=== PATIENT | male | born 1950 | race Caucasian/White ===

== ENCOUNTER 2019-10-15 15:00 | Outpatient (RCR) | payer MEDICARE, SELFPAY ==
--- NOTE | 2019-10-08 16:35 | PTOPEVAL ---
INITIAL PHYSICAL THERAPY EVALUATION and PLAN OF CARE Thank you for referring Adi to [facility] Please review, sign, date and return this plan of care MILTON. He will be seen in PT 2x/wk x 4 wks. I agree with and certify that the following plan of care is medically necessary. Referring Physician Date Admitting Provider: Attending Provider: Rafiq Mccarty, Referring Provider: *PT Outpatient Evaluation Start: 10/08/19 15:02 Freq: Status: Active Protocol: Document 10/08/19 15:03 RAYO (Rec: 10/08/19 16:34 RAYO [id number]) Therapy Assessment Status Assessment Status Assessment Status Evaluation Outpatient Past Medical History Neurological History Hx Cerebrovascular Accident (CVA) Yes: 09/27/19 L sided symptoms which resolved Cardiovascular History Hx Coronary Artery Bypass Graft Yes: x4 04/09/10 Hx Hypercholesterolemia Yes Hx Hypertension Yes Respiratory History Hx Respiratory Disorders No Significant History Gastrointestinal History Hx Appendectomy Yes Genitourinary History Hx Genitourinary Disorders No Significant History Musculoskeletal History Hx Back Pain Yes: R buttock Hx Orthopedic Surgery Yes: RTC - bilat L 03/2011 R Endocrine History Hx Endocrine Disorders No Significant History Evaluation Information Problem Diagnosis R hip pain, balance - recent CVA Onset couple months - for R buttock pain Additional Evaluation Detail Sep 27 episode of L leg and arm numbness, weakness - gone after 1 day - + MRI findings for mini stroke Did do cardiac rehab - but since then still riding stationary bike 5 miles/day Subjective Information Noticing increased difficulty Query Text:As Reported By Patient/ with prolonged sitting - worse Family in truck - limited with 15 min ride Keeps wallet in front pocket. When gets up and moves around then goes away. No problem with sleeping - sides and stomach - but back soreness when getting out of bed which goes away. Since CVA - L LE - odd sensation - feels like it is asleep - no loss of strength Diagnostic Tests X-Rays For This Problem
--- NOTE | 2019-10-15 15:30 | PCPTNOTE ---
Adi came in for appointment - stated that there was no change with his R hip pain. 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 Went over to talk to Dr. Mccarty about lack of progress. Adi is to have R hip Xray - but veterinary technician is out - to have it either Thurs or Fri. Discussed to keep doing piriformis stretching and other exercises that feel good for him. Will await outcome of X ray - then plan from there.
--- NOTE | 2019-10-27 16:09 | PCPTNOTE ---
Follow up with Dr. Mccarty on Adi. Xray shows mild to moderate OA of R hip. In meantime, Adi had mild TIA. Undergoing work up. Adi is to see Dr. Arrington in regards to hip. Will put him on hold x several weeks. Await outcome of ortho visit.
--- NOTE | 2019-11-07 08:04 | PCPTNOTE ---
PHYSICAL THERAPY DISCHARGE NOTE Admitting Provider: Attending Provider: Rafiq Mccarty, MD Patient:Matteo Salcedo Date of :1950 Adi has not returned for any further treatments since 10/15/2019. He did have R hip Xray with findings and has been referred to an Orthopaedic MD. He has not returned to PT, therefore he will be discharged from physical therapy at this time. The goals have been partially achieved. Thank you for referring Adi to [facility]. Please review, sign, date and return this discharge summary MILTON. I have been updated about Adi's current status and I agree with discharge from the above service at this time. Referring Physician Date
== END 2019-11-10 09:36 | disposition home or self-care (01) ==
LOC: ANHHIPT 15:00
PROVIDERS: PCP Internal Medicine; Visit Provider Internal Medicine
DX: I69.398 Other sequelae of cerebral infarction (principal); R26.89 Other abnormalities of gait and mobility; M25.551 Pain in right hip
CPT/HCPCS: 97110; 97140; 97161

== ENCOUNTER 2019-12-04 10:06 | Outpatient (CLI) | payer MEDICARE, SELFPAY ==
--- NOTE | ~2019-12-04 | XR_ITS ---
EXAMINATION: XR lg joint inject/asp w image DATE: 12/04/2019 10:58 INDICATION: Right hip arthritis presenting with right hip pain TECHNIQUE: A time-out was performed to verify the patient's name, date of , and procedure to b e performed. The procedure including the risks, benefits, and alternatives was discussed with the pat ient. Risks discussed included bleeding and infection. The patient understood the risks and agreed to proceed. The skin overlying the right hip joint was prepped and draped in usual sterile fashion. A nesthetic was administered with 1% lidocaine subcutaneously. A 22 G needle was advanced under fluoro scopic guidance into the joint. Injection of 0.8 mL of Omnipaque 240 confirmed intra-articular posit ion of the needle. Subsequently, injectate consisting of 3 mm of a 2:1 mixture of 0.5% Marcaine: 80 mg/mL Depo-Medrol for a total dosage of 80 mg Depo-Medrol was instilled. Washout of contrast was seen confirming intra-articular administration. The needle was removed and the entry site was cleaned and dressed. There were no immediate complications. Fluoroscopy exposure time was 0.1 minutes. The tota l number of images was 1. FINDINGS: Real-time fluoroscopy demonstrates the needle in the right hip joint. Patient's pain prior to procedure:0/10. Patient's pain following the procedure: 0/10. Mild right hip osteoarthritis. IMPRESSION: 1. Successful right hip joint injection of local anesthetic and steroid. Reviewed, dictated and finalized at location A. AND MACHINE MAINTAINER
== END 2019-12-04 10:07 | disposition home or self-care (01) ==
PROVIDERS: PCP Internal Medicine; Visit Provider Orthopaedic Surgery
DX: M16.11 Unilateral primary osteoarthritis, right hip (principal)
CPT/HCPCS: 20610; 77002; J1040; Q9966

== ENCOUNTER 2020-09-13 01:54 | Outpatient (CLI) | payer MEDICARE, SELFPAY ==
[2020-09-13 18:35] LABS: SARS-CoV-2 RNA PCR Negative
== END 2020-09-13 01:55 | disposition home or self-care (01) ==
LOC: ANHCOVIDDT 01:54
PROVIDERS: PCP Internal Medicine; Visit Provider Urology
DX: Z01.812 Encounter for preprocedural laboratory examination (principal); Z20.828 Contact with and (suspected) exposure to other viral communicable diseases
CPT/HCPCS: 87635; C9803; U0003

== ENCOUNTER 2020-09-16 00:35 | Day surgery (SDC) | payer MEDICARE, SELFPAY ==
[2020-09-08 14:46] VITALS: BMI 35.6
--- NOTE | 2020-09-16 06:30 | WPDHPUPDATE1 ---
History and Physical Update Update Date/Time: 09/16/20 06:30 History and Physical has been reviewed, including an updated exam of the patient. There are NO changes in the patient's condition. Risks, benefits, and alternatives have been discussed and questions answered. Patient agrees to proceed with procedure.
[2020-09-16] MEDS: LACTATED RINGERS 1,000 ML 30 ML IV CONT (10:08)
[2020-09-16 10:10] VITALS: BP 170/76; PULSE 64; RESP 16; TEMP 36; O2SAT 100
--- NOTE | 2020-09-16 10:34 | WPDANESEPPF ---
Anes - Initial Pre Proc Eval Procedure: Operation Date: 09/16/20 11:30 Proposed Procedures p Urolift - Jac Isaacs MD Date/Time: 09/16/20 10:34 Surgeon: Jac Isaacs MD Pre Op Diagnosis: BPH Patient Data Age: 70 Gender: M Height: 5 ft 6 in Weight: 103.1 kg Last Vital Signs Temp 36.0 C L 09/16/20 10:10 Pulse 64 09/16/20 10:10 Resp 16 09/16/20 10:10 BP 170/76 H 09/16/20 10:10 Pulse Ox 100 09/16/20 10:10 Allergies Allergy/AdvReac Type Severity Reaction Status Date / Time No Known Allergies Allergy Verified 09/16/20 09:33 Home Medications Medication Instructions Recorded Confirmed Type losartan 50 mg tablet 50 mg PO HS 12/01/19 09/16/20 History metoprolol tartrate 50 mg tablet 50 mg PO HS 12/01/19 09/16/20 History rosuvastatin 20 mg tablet 20 mg PO HS 12/01/19 09/16/20 History tamsulosin 0.4 mg capsule 0.4 mg PO BID 12/01/19 09/16/20 History nitroglycerin 0.3 mg sublingual 0.3 mg SUBLINGUAL Q5M PRN 12/02/19 09/08/20 History tablet clopidogrel 75 mg HS 09/08/20 09/16/20 History enoxaparin See Rx Instructions .ROUTE .COMPLEX 09/08/20 09/16/20 History cyclosporine [Restasis] 1 drp OPHTHALMIC (EYE) BID 09/16/20 09/16/20 History Patient hx anesthesia problems: none Family hx anesthesia problems: none PMFSH Past Medical History Medical History (Updated 09/16/20 @ 10:34 by Jeb Juan MD) CAD (coronary artery disease) High blood pressure Obesity IRA (obstructive sleep apnea) Vision loss Surgical History Surgical History (Updated 09/16/20 @ 10:34 by Jeb Juan MD) History of appendectomy History of facial surgery History of shoulder surgery Hx of CABG Hx of heart surgery Social History Social History Smoking status: Never smoker Second hand tobacco smoke exposure: No Alcohol intake: current Drinks per week: 10 Substance use: never Substance use type: does not use Living arrangements: with family Gender identity (if verbalized by the patient): Male Spiritual care concerns: No Anes - Eval Final PreProcedure Day of Procedure 09/16/20 10:34 Patient weight: obese Heart: regular rate and rhythm Lungs: clear to auscultation Airway: Mallampati scale class II Neurological: alert and oriented Last oral intake: >/= 8 hours ASA classification: III Emergent: no Anesthetic plan: proceed Anesthesia type and monitoring: general LMA and standard monitoring Informed Consent: The patient's anesthetic plan and its attendant risks and benefits were discussed with the patient/family/POA. Questions were solicited and answers provided to the satisfaction of the patient/family/POA.
--- NOTE | 2020-09-16 12:29 | SUR.PREOP ---
Discussed delay with patient.
[2020-09-16] MEDS: ceFAZolin 2 GM/D5W 50 ML 2 GM/50 ML BAG IVPB (13:01)
[2020-09-16] MEDS: LIDOCAINE HCL 2% GEL UROJET 10 ML PKG MUCOUS MEM (13:12)
[2020-09-16 13:28] VITALS: BP 160/84; PULSE 67; RESP 16; O2SAT 98
--- NOTE | 2020-09-16 13:36 | P.OP_ITS ---
Procedure Note - Detailed Date of procedure: 09/16/20 Pre-op diagnosis: BPH Post-op diagnosis: same Procedure performed: UroLift Description of procedure: The patient was prepped and draped in a routine fashion after the uneventful induction of a general LMA anesthetic. A 20F cystoscope was inserted into the bladder. The cystoscopy bridge was replaced with a UroLift delivery device. The first treatment site was the patient's right side approximately 1.5cm distal to the bladder neck. The distal tip of the delivery device was then angled laterally approximately 20 degrees at this position to compress the lateral lobe. The trigger was pulled, thereby deploying a needle containing the implant through the prostate. The needle was then retracted, allowing one end of the implant to be delivered to the capsular surface of the prostate. The implant was then tensioned to assure capsular seating and removal of slack monofilament. The device was then angled back toward midline and slowly advanced proximally (typically 3 to 4 mm) until cystoscopic verification of the monofilament being centered in the delivery bay. The urethral end piece was then affixed to the monofilament thereby tailoring the size of the implant. Excess filament was then severed. The delivery device was then re-advanced into the bladder. The delivery device was then replaced with cystoscope and bridge and the implant location and opening effect was conf irmed cystoscopically. The same procedure was then repeated on the left side, and two additional implants were delivered just proximal to the verumontanum, again one on right and one on left side of the prostate, following the same technique. Cystoscopy then revealed a persistent area of obstruction, and two more implants were delivered in the mid-prostate. Therefore, a total of 6 implants were delivered. A final cystoscopy was conducted first to inspect the location and state of each implant and second, to confirm the presence of a continuous anterior channel was present through the prostatic urethra with irrigation flow turned off. Because of bleeding I did opt to leave an indwelling 18F Tejada catheter which I intend to leave overnight. At this point the cystoscope was removed and the patient was taken to the PACU in good condition. Anesthesia: GLMA and MAC Surgeon: Jac Isaacs MD Estimated blood loss (mL): 15 Drains: Yes (16F Tejada) Packing: No Pathology: none sent Complications: No immediate complications Condition: stable Disposition: PACU
[2020-09-16 13:55] VITALS: BP 166/93; PULSE 62; RESP 16; O2SAT 98
--- NOTE | 2020-09-16 14:07 | SUR.PHASEII ---
DR. OLIVARES CAME TO SEE PT. WILL CHECK ON HIS URINE IN ONE HOUR TO DECIDE IF PT NEEDS TO KEEP CASTAÑEDA CATHETER IN AT HOME.
[2020-09-16 14:25] VITALS: BP 176/97; PULSE 59; RESP 16
[2020-09-16] MEDS: oxyCODONE HCL (*CRX) 5 MG TAB IR PO (15:02)
--- NOTE | 2020-09-16 15:35 | SUR.PHASEII ---
DR. OLIVARES ORDERED FOR ME TO REMOVE CASTAÑEDA CATHETER AND INSTRUCTED PT TO DRINK LOTS OF WATER AT HOME.
== END 2020-09-16 15:35 | disposition home or self-care (01) ==
PROVIDERS: PCP Internal Medicine; Visit Provider Urology
PROC: 0T7D8DZ Dilation of Urethra with Intraluminal Device, Via Natural or Artificial Opening Endoscopic (ICD-10-PCS; CPT 52441; principal; 2020-09-16 11:30)
DX: N40.1 Benign prostatic hyperplasia with lower urinary tract symptoms (principal); R35.0 Frequency of micturition; R35.1 Nocturia; R39.15 Urgency of urination; I25.10 Atherosclerotic heart disease of native coronary artery without angina pectoris; I10 Essential (primary) hypertension; G47.33 Obstructive sleep apnea (adult) (pediatric); H54.7 Unspecified visual loss; Z95.1 Presence of aortocoronary bypass graft; E66.9 Obesity, unspecified; Z68.36 Body mass index [BMI] 36.0-36.9, adult
CPT/HCPCS: C9740; A9270; J0690; J2405; J2704; J3010; J7120; L8699

== ENCOUNTER 2021-05-06 15:58 | Emergency (ER) | payer MEDICARE, SELFPAY ==
[2021-05-06] VITALS (9 sets, daily range): BP systolic 140–185; BP diastolic 70–87; PULSE 85–94; RESP 16–31; TEMP 36.7–37.3; O2SAT 96–99
--- NOTE | ~2021-05-06 | CT_ITS ---
EXAMINATION: CT abdomen pelvis w con DATE: 05/06/2021 18:10 INDICATION: Abdominal pain. TECHNIQUE: Computed tomography (CT) of the abdomen and pelvis was performed with 100 mL Omnipaque 350 intravenous contrast. Automated exposure control and iterative reconstruction technique were employe d. The dose-length product was 1255.58 mGy-cm. COMPARISON: None. FINDINGS: The visualized portions of the lung bases demonstrate mild atelectasis. No pleural effusion . The heart size is normal. No pericardial effusion. There is a 6 mm cyst in the liver. The gallbladd er, spleen, pancreas, adrenal glands, and right kidney are normal. There is a 4 mm cyst in left kidne y. There is mild diffuse bladder wall thickening, likely secondary to chronic outlet obstruction from the severely enlarged prostate. There is diverticulosis of the colon without evidence of diverticuli tis. There are no dilated loops of bowel. The appendix is not visualized. There are no pathologically enlarged lymph nodes. There is no free intraperitoneal fluid. There is mild lumbar spondylosis. IMPRESSION: 1. No etiology for the patient's symptoms. Reviewed, dictated and finalized at location A.
[2021-05-06 17:00] LABS: Hematocrit 44.3 % (42.0-52.0); Hemoglobin 15.3 g/dL (14.0-18.0); Mean Corpuscular HGB Conc 34.5 g/dl (32-36); Mean Corpuscular Hemoglobin 30.7 pg (26-34); Mean Corpuscular Volume 88.8 fl (80-100); Mean Platelet Volume 8.9 fl (7.4-10.4); Platelet Count Result 169 k/mm3 (150-375); Red Blood Count 4.99 M/mm3 (4.6-6.20); Red Cell Distribution Width 12.5 % (11.5-14.5); White Blood Count 16.8 K/mm3 (4.5-10.0)
[2021-05-06 17:04] LABS: Add Urine Microscopic? YES; Appearance Urine Clear (Clear); Bilirubin Urine Negative (Negative); Blood Urine 1+ (Negative); Color Urine Yellow (Yellow); Glucose Urine UA Negative (Negative); Ketones Urine Negative (Negative); Leukocyte Esterase Ur 1+ LEU/UL (Negative); Nitrate Urine Negative (Negative); Protein Urine 1+ mg/dL (Negative); Specific Grav Ur 1.013 (1.001-1.035); Squamous Epithelial Cell Urine Rare /hpf (Few); Urobilinogen Urine Negative mg/dL (<2.0); WBC Urine 31-50 /hpf
[2021-05-06 17:11] LABS: Alanine Aminotransferase 23 U/L (4-50); Albumin Level 4.4 g/dL (3.5-5.1); Alkaline Phosphatase 50 U/L (38-126); Anion Gap 11 mmol/L (8-16); Aspartate Amino Transferase 29 U/L (17-59); Bilirubin,Total 1.6 mg/dL (0.2-1.3); Blood Urea Nitrogen 13 mg/dL (9-20); Calcium 8.9 mg/dL (8.4-10.2); Carbon Dioxide 26 mmol/L (22-30); Chloride 94 mmol/L (98-107); Estimated CRCL calculation 64 ml/min; Estimated Glomerular Filt Rate > 60; Glucose 99 mg/dL (65-110); Lipase 61 U/L (23-300); Potassium 3.8 mmol/L (3.4-5.0); Sodium 131 mmol/L (137-145)
[2021-05-06 17:22] LABS: Band Neutrophils Percent 3 % (0-6); Lymphocytes Absolute Manual 0.67 K/mm3 (1.1-4.5); Monocytes Absolute Manual 0.67 K/mm3 (0.1-0.90); Monocytes Percent Manual 4 % (3-9); Neutrophils Absolute Manual 15.45 K/mm3 (1.3-6.7); Neutrophils Percent Manual 89 % (46-73); Total Cells Counted 100
[2021-05-06 17:23] LABS: Platelet Estimate Adequate (Adequate)
--- NOTE | 2021-05-06 17:35 | ED.GENADULT ---
HPI - General Adult General Chief complaint: Abdominal Pain <DO Arturo Cunningham Last Filed: 05/06/21 18:53> Stated complaint: HTN, trouble urinating <DO Arturo Cunningham Last Filed: 05/06/21 18:53> Time Seen by Provider: 05/06/21 17:29 <Brad Jaimes DO - Last Filed: 05/06/21 18:53> Source: RN notes reviewed <DO Arturo Cunningham Last Filed: 05/06/21 18:53> History of Present Illness HPI narrative: Patient presents emergency department from home for dysuria. Patient states over the past 2 days has been having difficulty starting his urine stream and when he does he is not able to fully empty he states he has had no abdominal pain but states that he did note some mild nausea states he has a history of BPH and had a procedure done by Dr. Ferny dela cruz prostate and is now on Flomax denies any fevers or chills, chest pain shortness of breath or any other symptoms he states he did check his blood pressure today notes it was mildly elevated as well and came to the emergency room for further evaluation <DO Arturo Cunningham Last Filed: 05/06/21 18:53> Related Data Home medications: Home Medications Medication Instructions Recorded Confirmed clopidogrel 05/06/21 05/06/21 losartan 05/06/21 metoprolol succinate PO 05/06/21 nitroglycerin mg 05/06/21 rosuvastatin mg 05/06/21 sildenafil (pulm.hypertension) 05/06/21 tamsulosin mg PO 05/06/21 <DO Arturo Cunningham Last Filed: 05/06/21 18:53> Allergies/adverse reactions: Allergies Allergy/AdvReac Type Severity Reaction Status Date / Time No Known Allergies Allergy Verified 05/06/21 18:41 <DO Arturo Cunningham Last Filed: 05/06/21 18:53> Review of Systems Review of Systems: Gen.: Denies fevers or chills ENT: Denies congestion Respiratory: Denies shortness of breath or cough CV: Denies chest pain or palpitations GI: Denies abdominal pain emesis or diarrhea reports nausea see HPI Musculoskeletal: Denies back pain or muscle pain Neuro: Denies numbness, tingling, weakness or focal weakness Skin: Denies rash Except as documented, all other systems reviewed and negative <Brad Jaimes DO - Last Filed: 05/06/21 18:53> [facility] Past Medical History Medical History: Medical History CAD (coronary artery disease) High blood pressure Obesity IRA (obstructive sleep apnea) Vision loss <Brad Jaimes DO - Last Filed: 05/06/21 18:53> Surgical History Surgical History: Surgical History (Updated 09/16/20 @ 10:34 by Jeb Juan MD) History of appendectomy History of facial surgery History of shoulder surgery Hx of CABG Hx of heart surgery <Brad Jaimes DO - Last Filed: 05/06/21 18:53> Social History Social History: Social History Smoking status: Never smoker Second hand tobacco smoke exposure: No Alcohol intake: current Drinks per week: 10 Substance use: never Substance use type: does not use Gender identity (if verbalized by the patient): Male Spiritual care concerns: No <DO Arturo Cunningham Last Filed: 05/06/21 18:53> Exam Narrative: APPEARANCE: No acute distress, nontoxic, resting in bed EYES: EOMI HEENT: Normocephalic, atraumatic, OMM RESPIRATORY: No respiratory distress Clear to auscultation bilaterally with no rhonchi wheezing or rales. CARDIOVASCULAR: Regular rate and rhythm without murmurs rubs or gallops. ABDOMINAL: Soft, nontender, nondistended, no rebound or guarding MUSCULOSKELETAl: Moves all extremities. No clubbing, cyanosis or edema. NEURO: Awake and alert. Following commands, speech normal, no focal deficits SKIN:: Warm, dry. No rashes lesions or abrasions PSYCHIATRIC: Normal affect/mood, <Brad Jaimes DO - Last Filed: 05/06/21 18:53> Course Course Emergency Course: Called discussed with Dr. Marie
[2021-05-06] MEDS: SODIUM CHLORIDE 0.9% IV 1,000 ML 999 ML IV CONT (18:21)
[2021-05-06 19:06] LABS: Lactic Acid Reflex 1.1 mmol/L (0.7-2.1)
[2021-05-06] MEDS: CIPROFLOXACIN 500 MG TAB PO (19:25)
== END 2021-05-06 20:19 | disposition home or self-care (01) ==
PROVIDERS: Emergency Provider Emergency Medicine; PCP Internal Medicine
DX: N41.0 Acute prostatitis (principal); I25.10 Atherosclerotic heart disease of native coronary artery without angina pectoris; G47.33 Obstructive sleep apnea (adult) (pediatric); E66.9 Obesity, unspecified; Z68.37 Body mass index [BMI] 37.0-37.9, adult; Z95.1 Presence of aortocoronary bypass graft
CPT/HCPCS: 36415; 74177; 80053; 81001; 83605; 83690; 85025; 87040; 87077; 87086; 87186; 96360; 99284; A9270; J7030; Q9967

== ENCOUNTER 2021-07-16 10:54 | Emergency (ER) | payer MEDICARE, SELFPAY ==
[2021-07-16 11:14] VITALS: BP 165/92; PULSE 73; RESP 17; TEMP 36.6; O2SAT 99
[2021-07-16 12:00] LABS: Add Urine Microscopic? YES; Appearance Urine Clear (Clear); Bilirubin Urine Negative (Negative); Blood Urine 1+ (Negative); Color Urine Straw (Yellow); Glucose Urine UA Negative (Negative); Ketones Urine Negative (Negative); Leukocyte Esterase Ur Negative LEU/UL (Negative); Nitrate Urine Negative (Negative); Protein Urine Negative (Negative); RBC Urine 0-2 /hpf (0-2); Specific Grav Ur 1.008 (1.001-1.035); Urobilinogen Urine Negative mg/dL (<2.0); WBC Urine 0-3 /hpf
[2021-07-16 13:28] LABS: Basophils Percent Auto 0.3 % (0.2-1.2); Eosinophils Absolute Auto 0.1 K/mm3 (0-0.3); Eosinophils Percent Auto 1.7 % (0-4.4); Hematocrit 45.3 % (42.0-52.0); Hemoglobin 15.9 g/dL (14.0-18.0); Immature Granulocyte Absolute 0.03 K/mm3 (0.00-0.031); Immature Granulocyte Percent A 0.4 % (0-0.5); Lymphocytes Absolute Auto 0.81 K/mm3 (0.9-3.2); Lymphocytes Percent Auto 10.7 % (18.3-44.2); Mean Corpuscular HGB Conc 35.1 g/dl (32-36); Mean Corpuscular Hemoglobin 31.5 pg (26-34); Mean Corpuscular Volume 89.9 fl (80-100); Mean Platelet Volume 8.5 fl (7.4-10.4); Monocytes Absolute Auto 0.6 K/mm3 (0.1-0.6); Monocytes Percent Auto 7.8 % (2.6-8.5); Neutrophils Percent Auto 79.1 % (45.5-73.1); Platelet Count Result 187 k/mm3 (150-375); Red Blood Count 5.04 M/mm3 (4.6-6.20); Red Cell Distribution Width 12.1 % (11.5-14.5); White Blood Count 7.6 K/mm3 (4.5-10.0)
[2021-07-16 13:41] LABS: Alanine Aminotransferase 18 U/L (4-50); Albumin Level 4.9 g/dL (3.5-5.1); Alkaline Phosphatase 56 U/L (38-126); Anion Gap 11 mmol/L (8-16); Aspartate Amino Transferase 22 U/L (17-59); Bilirubin,Total 1.1 mg/dL (0.2-1.3); Blood Urea Nitrogen 9 mg/dL (9-20); Calcium 9.4 mg/dL (8.4-10.2); Carbon Dioxide 26 mmol/L (22-30); Chloride 99 mmol/L (98-107); Estimated CRCL calculation 69 ml/min; Estimated Glomerular Filt Rate > 60; Glucose 108 mg/dL (65-110); Potassium 4.8 mmol/L (3.4-5.0); Sodium 136 mmol/L (137-145)
--- NOTE | 2021-07-16 13:44 | ED.MALEGU ---
HPI - Male Genitourinary General Chief complaint: Urogenital-Male Stated complaint: difficulty with urination Time Seen by Provider: 07/16/21 11:12 Source: patient History of Present Illness HPI Narrative: Patient presents with dysuria and previous urgency. Patient works he had similar symptoms couple months ago was diagnosed with a UTI and feels like he is having a another UTI. Patient reports history of BPH. Patient denies any abdominal pain back pain fevers, nausea, vomiting. His symptoms started this morning and have begun to improve on arrival to the ER. He denies any hematuria Related Data Home Medications Medication Instructions Recorded Confirmed clopidogrel 05/06/21 05/06/21 losartan 05/06/21 metoprolol succinate PO 05/06/21 nitroglycerin mg 05/06/21 rosuvastatin mg 05/06/21 sildenafil (pulm.hypertension) 05/06/21 tamsulosin mg PO 05/06/21 Allergies Allergy/AdvReac Type Severity Reaction Status Date / Time No Known Allergies Allergy Verified 07/16/21 11:53 Review of Systems Review of Systems: CONSTITUTIONAL: Denies fever, chills, or sweats. EYES: Denies visual changes, redness, or discharge. ENT: Denies rhinorrhea, congestion, sore throat, or otalgia. CARDIOVASCULAR: Denies chest pain, palpitations, or edema. RESPIRATORY: Denies cough or dyspnea. GASTROINTESTINAL: Denies abdominal pain, nausea, vomiting, or diarrhea. GENITOURINARY: Reports dysuria and increased urinary urgency as well as frequency SKIN: Denies rash or itching. MUSCULOSKELETAL: Denies back pain, joint pain, or myalgia. NEUROLOGIC: Denies headache, numbness, dizziness, or weakness. PSYCHIATRIC: Denies anxiety or depression. All systems reviewed & are unremarkable except as noted in HPI and below PMFSH Past Medical History Medical History CAD (coronary artery disease) High blood pressure Obesity IRA (obstructive sleep apnea) Vision loss Surgical History Surgical History History of appendectomy History of facial surgery History of shoulder surgery Hx of CABG Hx of heart surgery Social History Social History Smoking status: Never smoker Second hand tobacco smoke exposure: No Alcohol intake: current Drinks per week: 10 Substance use: never Substance use type: does not use Gender identity (if verbalized by the patient): Male Spiritual care concerns: No Exam Narrative: GENERAL: Well-appearing, well-nourished, and in no acute distress. HEAD: Normocephalic, atraumatic. EYES: PERRLA and EOMI. ENT: Nares clear, no rhinorrhea or epistaxis. Mucous membranes moist. NECK: Supple. No masses. No JVD ABDOMEN: Soft, nontender, nondistended. BACK: No CVA tenderness no midline back pain EXTREMITIES: Normal range of motion. No edema. SKIN: Warm, dry, no rash. NEURO: No focal deficits. Alert and oriented x3. PSYCH: Normal mood and affect. Course Reevaluation(s) Reevaluation #1: Patient resting comfortably feeling improved Date: 07/16/21 Time: 13:45 Reevaluation #2: Patient continues to be resting comfortably results plan reviewed with patient. Patient comfortable with outpatient plan. Date: 07/16/21 Time: 14:22 Vital Signs Vital signs: Vital Signs Temperature 36.6 C 07/16/21 11:14 Pulse Rate 73 07/16/21 11:14 Respiratory Rate 17 07/16/21 11:14 Blood Pressure 165/92 H 07/16/21 11:14 Pulse Oximetry 99 07/16/21 11:14 Temperature 36.6 C 07/16/21 11:14 Pulse Rate 70 07/16/21 14:30 Respiratory Rate 16 07/16/21 14:30 Blood Pressure 148/86 H 07/16/21 14:30 Pulse Oximetry 99 07/16/21 14:30 MDM - Male Genitourinary MDM Narrative Medical decision making narrative: H&P as above, vss, pt looks clinically well, exam reassuring, labs reassuring, img PVR of 50, additional labs/img considered, symptomatic relief availab
[2021-07-16 14:30] VITALS: BP 148/86; PULSE 70; RESP 16; O2SAT 99
== END 2021-07-16 14:30 | disposition home or self-care (01) ==
PROVIDERS: Emergency Provider Emergency Medicine; PCP Internal Medicine
DX: N40.1 Benign prostatic hyperplasia with lower urinary tract symptoms (principal); R39.15 Urgency of urination; R31.1 Benign essential microscopic hematuria; I25.10 Atherosclerotic heart disease of native coronary artery without angina pectoris; E66.9 Obesity, unspecified; Z68.36 Body mass index [BMI] 36.0-36.9, adult; G47.33 Obstructive sleep apnea (adult) (pediatric); Z95.1 Presence of aortocoronary bypass graft
CPT/HCPCS: 36415; 80053; 81001; 85025; 99283

== ENCOUNTER 2021-08-31 10:00 | Outpatient (CLI) | payer MEDICARE, SELFPAY ==
--- NOTE | 2021-08-31 10:03 | ECG_ITS ---
Measurements Intervals [place] Rate: 58 P: 15 OH: 284 QRS: -11 QRSD: 117 T: 16 QT: 401 QTc: 396 Interpretive Statements SINUS BRADYCARDIA WITH FIRST DEGREE AV BLOCK INCOMPLETE RIGHT BUNDLE BRANCH BLOCK DELAYED PRECORDIAL R/S TRANSITION CONSIDER INFERIOR INFARCT, AGE INDETERMINATE ABNORMAL ECG Electronically Signed On 08-31-2021 11:19:24 [employer]ER by Rashard Sawant D.O.
== END 2021-08-31 10:01 | disposition home or self-care (01) ==
LOC: ANHSURGERY 10:03
PROVIDERS: PCP Internal Medicine; Visit Provider Urology
DX: I10 Essential (primary) hypertension (principal); Z01.818 Encounter for other preprocedural examination; I45.10 Unspecified right bundle-branch block; I44.0 Atrioventricular block, first degree
CPT/HCPCS: 93005

== ENCOUNTER 2021-09-08 00:09 | Day surgery (SDC) | payer MEDICARE, SELFPAY ==
[2021-08-29 10:11] VITALS: BMI 36.3
--- NOTE | 2021-08-29 10:25 | PC.NURSE ---
Addendum entered by Kimberly Fuchs RN 08/29/21 10:41: ARRIVE 0930, OR TIME-1130 Original Note: Report to the Outpatient Waiting Room, entrance under the green pavilion located off [facility], at time __9:30AM on date __09/08/21 . OR Time: __9:30AM . - You and your visitor will be asked a series of questions to screen for COVID 19 for your protection. - A mask is required within the hospital. - Only one visitor is allowed at this time. Patient visitors will be guided where to wait when not with patient. Preoperative COVID Testing Requirements: No COVID Test needed if: (proof is required; if not received patient will have Rapid Test prior to entry) - Patient has received COVID Vaccine at least 14 days prior to procedure date or - Patient has positive COVID test result within last 90 days of surgery date. COVID Test needed if above criteria is not met If not COVID vaccinated a COVID test must be conducted within 72 hours of surgery and patient is asked to isolate self from time of testing until procedure. You will go to the [facility] for your COVID testing. The [facility] site is located at the corner of [address] [facility]. You will only be called if COVID results are positive and your surgeon may reschedule your elective surgery date. Patients may have clear liquids (water, carbonated beverages, clear teas, apple juice) until 3 hours prior to surgery with a maximum of 20 ounces. - No food from midnight until time of surgery - Infants may have breast milk until 4 hours before surgery, formula 6 hours prior to surgery. - Children will be allowed to drink immediately following surgery. If applicable, please bring a bottle or sippy cup to assist with drinking. Juice, water, soda, and popsicles are readily available. For infants on formula, please bring formula the day of surgery. Pacifiers are allowed. Take the following medications with a SIP of water the morning of surgery: ____NONE Medications to discontinue per physician PLAVIX PER DR OLIVARES Date to take last dose Please no make-up, nail ivorian, hairspray, perfume, deodorant, or body powder the day of surgery. No jewelry (including any body piercings) or valuables the day of surgery, leave them at home. Please take a shower or bath the night before, or the morning of, surgery with an antibacterial soap. Wear comfortable, loose fitting clothing. Children are encouraged to wear pajamas. - Jewelry must be removed prior to entering the operating room. Rings and piercings that are not removed may be cut off. - The hospital will not accept responsibility for valuables. - Please leave all valuables, including medications, at home the day of surgery. If you are going home after surgery, a licensed [employer] company flatbed driver must drive you home. - NO public transportation without another adult. - We recommend that an adult stay with you for 24 hours following discharge. - We also recommend that you do not drive, make important decision, drink alcoholic beverages, or take any drugs that were not prescribed by your health care provider for at least 24 hours after your discharge time. For Pediatric surgeries, we recommend two adults accompany the child home (only one inside the building at this time). Follow any additional instructions given to you from your surgeon. Telephone instructions given to __PATIENT and asked if any additional questions and then verbalized understanding. Patient advised to call surgeon office or pre surgery nurse liaison [phone] if any additional questions.
--- NOTE | 2021-08-31 10:51 | PM.IMHP ---
H&P: HPI History of Present Illness Date/Time: 08/31/21 10:51 71-year-old with longstanding bladder outlet obstructive voiding symptoms and eventually the urinary retention. He has had little success with the attempted management via Urolift placed in August 2020. He has gone on to develop urinary retention. After discussion of therapeutic options he has elected for a TURP. He does have a slightly elevated PSA at 4.1 to we have opted to forego formal transrectal ultrasound and biopsy because of his longstanding need for anticoagulation. He is aware of the risks he may have underlying prostate cancer may be undiagnosed. He is aware of the risk of TURP including postoperative bleeding, persistent voiding symptoms, urinary incontinence. Chief Complaint: Difficulty voiding and urinary retention Review of Systems Cardiovascular: Cardiovascular: Denies chest pain, Denies lightheadedness, Denies palpitations and Denies dyspnea Respiratory: Respiratory: Denies dyspnea Gastrointestinal: Gastrointestinal: Denies diarrhea, Denies nausea and Denies vomiting Genitourinary: Genitourinary: Denies hematuria and Denies dysuria Endocrine: Endocrine: Denies palpitations [facility] Past Medical History Medical History CAD (coronary artery disease) High blood pressure Obesity IRA (obstructive sleep apnea) Vision loss Surgical History Surgical History History of appendectomy History of facial surgery History of shoulder surgery Hx of CABG Hx of heart surgery Social History Social History Smoking status: Never smoker Second hand tobacco smoke exposure: No Alcohol intake: current Drinks per week: 12 Substance use: never Substance use type: does not use Additional living arrangements comments: Gender identity (if verbalized by the patient): Male Spiritual care concerns: No Meds Home Medications and Allergies Home Medications Medication Instructions Recorded Confirmed Type clopidogrel 75 mg PO HS 05/06/21 08/29/21 History losartan 50 mg PO HS 05/06/21 08/29/21 History metoprolol succinate 50 mg PO HS 05/06/21 08/29/21 History nitroglycerin 0.4 mg SUBLINGUAL Q2-3M PRN 05/06/21 08/29/21 History rosuvastatin 20 mg PO HS 05/06/21 08/29/21 History sildenafil (pulm.hypertension) 20 mg PO ONCE PRN 05/06/21 08/29/21 History tamsulosin 0.4 mg PO BID 05/06/21 08/29/21 History amlodipine 5 mg PO HS 08/29/21 08/29/21 History Allergies Allergy/AdvReac Type Severity Reaction Status Date / Time No Known Allergies Allergy Verified 08/29/21 10:09 Exam Const: General: no acute distress Resp: Effort & Inspection: normal respiratory effort GI: Inspection: non-distended GI Palp: No abdominal tenderness and No Guarding due to palpation present (GI) Auscultation: normal bowel sounds Assessment and Plan Assessment and plan (1) Urinary retention due to benign prostatic hyperplasia: Code(s): N40.1 - Benign prostatic hyperplasia with lower urinary tract symptoms; R33.8 - Other retention of urine Status: Acute Assessment and Plan: TURP
[2021-09-08] VITALS (17 sets, daily range): BP systolic 111–171; BP diastolic 57–83; PULSE 56–75; RESP 7–24; TEMP 36.2–37; O2SAT 92–100; BMI 35.7
--- NOTE | 2021-09-08 06:48 | WPDHPUPDATE1 ---
History and Physical Update Update Date/Time: 09/08/21 06:48 History and Physical has been reviewed, including an updated exam of the patient. There are NO changes in the patient's condition. Risks, benefits, and alternatives have been discussed and questions answered. Patient agrees to proceed with procedure.
--- NOTE | 2021-09-08 08:43 | P.PNAN_ITS ---
Anes - Initial Pre Proc Eval Procedure: Operation Date: 09/08/21 11:30 Proposed Procedures p Trans Urethral Resection Prostate - Jac Isaacs MD Date/Time: 09/08/21 08:43 Surgeon: Jac Isaacs MD Pre Op Diagnosis: bph Patient Data Age: 71 Gender: M Height: 1.68 m Weight: 102 kg Allergies Allergy/AdvReac Type Severity Reaction Status Date / Time No Known Allergies Allergy Verified 09/08/21 09:36 Home Medications Medication Instructions Recorded Confirmed Type clopidogrel 75 mg PO HS 05/06/21 09/08/21 History losartan 50 mg PO HS 05/06/21 09/08/21 History metoprolol succinate 50 mg PO HS 05/06/21 09/08/21 History nitroglycerin 0.4 mg SUBLINGUAL Q2-3M PRN 05/06/21 08/29/21 History rosuvastatin 20 mg PO HS 05/06/21 09/08/21 History sildenafil (pulm.hypertension) 20 mg PO ONCE PRN 05/06/21 08/29/21 History tamsulosin 0.4 mg PO BID 05/06/21 09/08/21 History amlodipine 5 mg PO HS 08/29/21 09/08/21 History Patient hx anesthesia problems: none Family hx anesthesia problems: none Results Review: All pre-operative results and documents have been reviewed as part of the pre-operative evaluation. ON LICENSE OF [facility] Past Medical History Medical History (Updated 09/08/21 @ 08:44 by Raghav Duenas DO) CAD (coronary artery disease) CVA (cerebral vascular accident) High blood pressure Obesity IRA (obstructive sleep apnea) TIA (transient ischemic attack) Vision loss Surgical History Surgical History (Updated 09/08/21 @ 08:44 by Raghav Duenas DO) History of appendectomy History of facial surgery History of shoulder surgery Hx of CABG x4 vessel, 2019 Hx of heart surgery Social History Social History Smoking status: Never smoker Second hand tobacco smoke exposure: No Alcohol intake: current Drinks per week: 12 Substance use: never Substance use type: does not use Living arrangements: with family Additional living arrangements comments: Gender identity (if verbalized by the patient): Male Spiritual care concerns: No Anes - Eval Final PreProcedure Day of Procedure 09/08/21 08:43 Patient weight: obese Heart: regular rate and rhythm Lungs: clear to auscultation and normal air movement Airway: Mallampati scale class III Neurological: alert and oriented Last oral intake: >/= 8 hours ASA classification: III Emergent: no Anesthetic plan: proceed Anesthesia type and monitoring: general LMA and standard monitoring Results Review: All pre-operative results and documents have been reviewed as part of the pre-operative evaluation. Informed Consent: The patient's anesthetic plan and its attendant risks and benefits were discussed with the patient/family/POA. Questions were solicited and answers provided to the satisfaction of the patient/family/POA.
[2021-09-08] MEDS: LACTATED RINGERS 1,000 ML 30 ML IV CONT ×2 (10:15→13:36)
--- NOTE | 2021-09-08 10:56 | SUR.PREOP ---
1045; DR BARAHONA NOTIFIED THAT PT STOPPED HIS PLAVIX 7 DAYS AGO, BUT DID NOT START LOVENOX. STATES NO ONE TOLD ME THAT
--- NOTE | 2021-09-08 11:00 | SUR.PREOP ---
Addendum entered by Gabrielle Castañeda RN 09/08/21 11:10: Dr. Alcala correction Original Note: KAELA guan md at bedside and was informed
--- NOTE | 2021-09-08 11:21 | SUR.PREOP ---
career coach for dr romero called out to inform that there is a delay for start time for this pt. This nurse informed her per rn eladio pt did not take his lovenox as ordered she will look into it and get back to me.
--- NOTE | 2021-09-08 11:28 | SUR.PREOP ---
per database reporting consultant dilcia camp pt case is delayed till 1230 due to a previous case. pt and visitor was informed
--- NOTE | 2021-09-08 11:56 | SUR.PREOP ---
1140; DR OLIVARES NOTIFIED OF PT NOT TAKING LOVENOX AFTER STOPPING PLAVIX FOR 1 WEEK,
[2021-09-08] MEDS: ceFAZolin 2 GM/D5W 50 ML 2 GM/50 ML BAG IVPB (12:27)
--- NOTE | 2021-09-08 13:32 | SUR.OPER ---
LIDOCAINE UROJET ON FIELD NOT GIVEN PER DR OLIVARES.
--- NOTE | 2021-09-08 13:38 | W.PM.PROC2 ---
Procedure Note - Detailed Date of Procedure 09/08/21 Pre-op Diagnosis bph Post-op Diagnosis same Procedure Performed TURP Surgeon Jac Isaacs MD Electronic Funds Transfer Coordinator None Anesthesia general Description of Procedure The patient was brought to the operative suite where he is prepped and draped in routine sterile fashion while in the dorsal lithotomy position after the uneventful induction of a general LMA anesthetic. A 27 Hungarian resectoscope sheath was placed into his bladder. He had no urethral strictures. The patient had bilobar hyperplasia with no median lobe. The bladder itself was endoscopically normal, showing no mucosal hyperemia, intravesical neoplasm or foreign bodies. There was a single, orthotopic ureteral orifice bilaterally. These orifices were identified and preserved throughout the remainder of the procedure. The left lateral lobe was resected starting at the 6 o'clock position, working counter clockwise to the 12 o'clock position. Again, resection was carried out from the bladder neck to the verumontanum until the capsular fibers of the prostate were identified. The right lateral lobe was resected in a similar fashion starting at the 6 o'clock position working clockwise to the 12 o'clock position and carried out until the capsular fibers of the prostate were identified. Apical tissue was then circumferentially resected. All chips were evacuated from the bladder using an [email or web address] evacuator. Hemostasis was obtained with electric cautery. The ureteral orifices were again inspected and found to be without injury. Estimated blood loss throughout this procedure was 75cc. The patient was taken to recovery room having tolerated this well. Estimated Blood Loss 75 Drains Yes Packing No Pathology yes Complications No immediate complications Condition stable Disposition PACU
--- NOTE | 2021-09-08 14:45 | SUR.PHASEI ---
9926- Call to floor RN to give report. Per RN she is unavailable at this time and will call back when able to receive report on patient.
[2021-09-08] MEDS: MORPHINE SULFATE (*CRX) 2 MG/ML INJ IV PUSH (15:25)
[2021-09-08] MEDS: DOCUSATE SODIUM 100 MG CAPSULE PO (16:57)
[2021-09-08] MEDS: HYDROcodone/acetaminophen (*CRX) 5-325 MG TABLET 1 TAB PO (18:51)
[2021-09-08] MEDS: HYOSCYAMINE SULFATE 0.125 MG TABLET SUBLINGUAL (18:52)
--- NOTE | 2021-09-08 18:58 | PC.NURSE ---
per Dr. Gloria's telephone order, capnography started on pt at 1700. Pt stated while initiating it that he wears a cpap at night and he should probably start wearing it while he is in the hospital since he is going to be staying more than the one day like he originally thought.
--- NOTE | 2021-09-08 19:00 | PC.NURSE ---
once capnography working properly, pt occasionally desatted into the 80s and increased CO2. pt placed on 2L nasal cannula oxygen which brought pt's oxygen saturation up to 94%. I also raised the head of the bed which assisted saturation.
--- NOTE | 2021-09-08 19:01 | PC.NURSE ---
the capnography alarm went off again. upon assessment, pt had lowered the head of the bed and had been napping. pt had desatted into the 80's again with increased CO2. I raised the head of the bed again and instructed pt to take deep breaths through his nose which caused the oxygen saturation to raise back to 92%.
[2021-09-08] MEDS: ROSUVASTATIN 10 MG TABLET 20 MG PO (21:43)
[2021-09-08] MEDS: METOPROLOL SUCCINATE EXT REL 50 MG TABCR PO (21:44)
[2021-09-08] MEDS: amLODIPine BESYLATE 5 MG TABLET PO (21:44)
[2021-09-08] MEDS: LOSARTAN POTASSIUM 50 MG TABLET PO (21:46)
[2021-09-09 02:38] VITALS: BP 114/66; PULSE 56; RESP 17; TEMP 36.2; O2SAT 95
[2021-09-09 06:28] LABS: Hematocrit 41.5 % (42.0-52.0); Hemoglobin 14.5 g/dL (14.0-18.0)
[2021-09-09 06:34] LABS: Anion Gap 9 mmol/L (8-16); Blood Urea Nitrogen 12 mg/dL (9-20); Calcium 8.8 mg/dL (8.4-10.2); Carbon Dioxide 23 mmol/L (22-30); Chloride 99 mmol/L (98-107); Estimated CRCL calculation 68 ml/min; Estimated Glomerular Filt Rate > 60; Glucose 112 mg/dL (65-110); Sodium 131 mmol/L (137-145)
--- NOTE | 2021-09-09 07:40 | WPDUROPN2 ---
Progress Note: A&P Assessment and Plan (1) Urinary retention due to benign prostatic hyperplasia: Code(s): N40.1 - Benign prostatic hyperplasia with lower urinary tract symptoms; R33.8 - Other retention of urine Status: Acute Assessment and Plan: Doing well POD #1 TURP Stop CBI this morning / voiding trial later if urine remains clear Subjective Subjective Date/Time Seen: 09/09/21 07:40 Comfortable, no complaints, tolerating diet Review of Systems Cardiovascular: Cardiovascular: Denies chest pain, Denies lightheadedness, Denies palpitations and Denies dyspnea Respiratory: Respiratory: Denies dyspnea Gastrointestinal: Gastrointestinal: Denies diarrhea, Denies nausea and Denies vomiting Genitourinary: Genitourinary: Denies hematuria and Denies dysuria Endocrine: Endocrine: Denies palpitations Exam Const: General: no acute distress Resp: Effort & Inspection: normal respiratory effort GI: Inspection: non-distended GI Palp: No abdominal tenderness and No Guarding due to palpation present (GI) Auscultation: normal bowel sounds Objective Data Vital Signs Vital Signs: Vital Signs - 24 hr 09/08/21 09:55 09/08/21 13:36 09/08/21 13:50 Temperature 98.1 F 97.1 F L Pulse Rate 56 L 62 58 L Respiratory Rate 20 7 L 12 Blood Pressure 146/73 H 115/76 118/68 Pulse Oximetry 100 96 100 09/08/21 14:00 09/08/21 14:10 09/08/21 14:20 Temperature Pulse Rate 57 L 58 L 58 L Respiratory Rate 18 18 18 Blood Pressure 129/75 128/77 144/80 H Pulse Oximetry 99 94 94 09/08/21 14:30 09/08/21 14:35 09/08/21 14:40 Temperature Pulse Rate 60 59 L 58 L Respiratory Rate 14 14 14 Blood Pressure 134/77 142/80 H 141/77 H Pulse Oximetry 96 96 95 09/08/21 14:45 09/08/21 15:15 09/08/21 15:30 Temperature 97.5 F L 97.4 F L Pulse Rate 59 L 64 58 L Respiratory Rate 14 24 H 16 Blood Pressure 137/83 158/79 H 171/79 H Pulse Oximetry 95 100 98 09/08/21 16:00 09/08/21 17:00 09/08/21 19:22 Temperature 97.4 F L 97.6 F 98.6 F Pulse Rate 62 61 68 Respiratory Rate 12 12 17 Blood Pressure 148/68 H 147/72 H 126/70 Pulse Oximetry 92 98 97 09/08/21 21:44 09/08/21 23:17 09/09/21 02:38 Temperature 97.2 F L 97.2 F L Pulse Rate 75 60 56 L Respiratory Rate 16 17 Blood Pressure 111/57 L 114/66 Pulse Oximetry 95 95 Intake/Output Intake/Output: Intake & Output 09/06/21 09/07/21 09/08/21 09/09/21 23:59 23:59 23:59 23:59 Intake Total 1287 1050 Output Total 1300 Balance -13 1050 Meds/Results Medications: Active Medications Generic Name Dose Route Start Last Admin Trade Name Freq PRN Reason Stop Dose Admin Hydrocodone Bitart/Acetaminophen 1 tab 09/08/21 14:53 09/08/21 18:51 Hydrocodone/Acetaminophen (*Crx) 5-325 Mg Tablet PO 1 tab Q4H PRN Administration Pain Rated 1-6 Amlodipine Besylate 5 mg 09/08/21 21:00 09/08/21 21:44 Amlodipine Besylate 5 Mg Tablet PO 5 mg HS MAGGIE Administration Cephalexin HCl 500 mg 09/09/21 09:00 Cephalexin 500 Mg Capsule PO QID MAGGIE Docusate Sodium 100 mg 09/08/21 17:00 09/08/21 16:57 Docusate Sodium 100 Mg Capsule PO 100 mg BID MAGGIE Administration Hyoscyamine 0.125 mg 09/08/21 14:53 09/08/21 18:52 Hyoscyamine Sulfate 0.125 Mg Tablet SUBLINGUAL 0.125 mg Q6H PRN Administration Bladder Spasm Losartan Potassium 50 mg 09/08/21 21:00 09/08/21 21:46 Losartan Potassium 50 Mg Tablet PO 50 mg HS MAGGIE Administration Metoprolol Succinate 50 mg 09/08/21 21:00 09/08/21 21:44 Metoprolol Succinate Ext Rel 50 Mg Tabcr PO 50 mg HS MAGGIE Administration Morphine Sulfate 2 mg 09/08/21 14:53 09/08/21 15:25 Morphine Sulfate (*Crx) 2 Mg/Ml Inj IV PUSH 2 mg Q2H PRN Administration Pain Rated 7-10 Naloxone HCl 0.1 mg 09/08/21 14:53 Naloxone Hcl 0.4 Mg/Ml Vial IV PUSH Q2M PRN Opiate Reversal Nitroglycerin 0.4 mg 09/08/21 14:53 Nitroglycerin Sl 0.4 Mg Tablet
[2021-09-09] MEDS: DOCUSATE SODIUM 100 MG CAPSULE PO (09:01)
[2021-09-09] MEDS: CEPHALEXIN 500 MG CAPSULE PO ×2 (09:01→12:23)
--- NOTE | 2021-09-09 12:49 | P.DS_ITS ---
DS: Admitting Diagnosis Discharge Date 08/10/2021 Admitting Diagnosis BPH DS: Summary Hospital Course Hospital Course: This patient with longstanding prostatism refractory for medical management was admitted on the morning of his planned TURP. The procedure was undertaken on that same day in an uneventful fashion. His post- operative course was, likewise, uneventful. On the evening of the procedure he was tolerating a diet. On POD#1 his urine was clear on CBI. The urine remained clear and, therefore, the catheter was removed late morning. The patient was observed for several hours, until he demonstrated he could void effectively without significant hematuria. He was discharged with careful instruction on limiting physical activity x2 weeks and plans to f/ in 2-3 weeks. At discharge he was comfortable and tolerating a diet. Time Spent with Patient Time attestation: Total time spent providing and/or coordinating discharge services: Exam Const: General: no acute distress Resp: Effort & Inspection: normal respiratory effort GI: Inspection: non-distended GI Palp: No abdominal tenderness and No Guarding due to palpation present (GI) Auscultation: normal bowel sounds DS: Data Data Completed and Pending Pending studies at discharge: Pending at discharge 09/08/21 13:09 Surgical [PTH] Routine Labs on day of discharge: Labs from last 24 hours 09/09/21 09/09/21 05:28 05:28 Hgb 14.5 Hct 41.5 L Sodium 131 L Potassium 4.0 Chloride 99 Carbon Dioxide 23 Anion Gap 9 BUN 12 Creatinine 1.00 Estim Creat Clear Calc 68 Estimated GFR > 60 Glucose 112 H Calcium 8.8 Discharge Plan Discharge Patient Disposition: Home, Self-Care Discharge Instructions: 1) Activity: No lifting/straining >15lbs. x2 weeks. 2) Diet: Resume normal pre-admission diet. 3) Follow-up: 2-3 weeks / call office for appointment ([phone]). Stand Alone Forms: General Discharge Instructions Discharge Medications: New hydrocodone-acetaminophen 5-325 mg tablet 1 - 2 tablet PO Q6H PRN (Reason: pain) Qty: 20 RF: 0 cephalexin 500 mg capsule 500 mg PO Q8H Qty: 9 RF: 0 docusate sodium [Colace] 100 mg capsule 100 mg PO DAILY Qty: 30 RF: 0 Continued losartan 50 mg tablet 50 mg PO HS RF: 0 metoprolol succinate 50 mg tablet extended release 24 hr 50 mg PO HS RF: 0 nitroglycerin 0.4 mg tablet, sublingual 0.4 mg sublingual Q2-3M PRN (Reason: Chest Pain) RF: 0 rosuvastatin 20 mg tablet 20 mg PO HS RF: 0 sildenafil (pulm.hypertension) 20 mg tablet 20 mg PO ONCE PRN (Reason: Erectile Dysfunction) RF: 0 amlodipine 5 mg tablet 5 mg PO HS RF: 0 Held clopidogrel 75 mg tablet 75 mg PO HS RF: 0 Hold Instructions: Resume on 09/10/21. Discontinued tamsulosin 0.4 mg capsule 0.4 mg PO BID RF: 0
== END 2021-09-09 13:44 | disposition home or self-care (01) ==
LOC: ANHSURGERY 09:32 → ANH2MED 14:57
PROVIDERS: PCP Internal Medicine; Visit Provider Urology
PROC: 0VT08ZZ Resection of Prostate, Via Natural or Artificial Opening Endoscopic (ICD-10-PCS; CPT 52601; principal; 2021-09-08 11:30)
DX: N40.1 Benign prostatic hyperplasia with lower urinary tract symptoms (principal); R33.8 Other retention of urine; Z79.02 Long term (current) use of antithrombotics/antiplatelets; I25.10 Atherosclerotic heart disease of native coronary artery without angina pectoris; I10 Essential (primary) hypertension; G47.33 Obstructive sleep apnea (adult) (pediatric); Z86.73 Personal history of transient ischemic attack (TIA), and cerebral infarction without residual deficits; Z95.1 Presence of aortocoronary bypass graft; E66.9 Obesity, unspecified; Z68.35 Body mass index [BMI] 35.0-35.9, adult
CPT/HCPCS: 52601; 36415; 80048; 85014; 85018; 88305; A9270; J0690; J1100; J2270; J2370; J2405; J2704; J3010; J7120

== ENCOUNTER 2022-12-26 01:52 | Day surgery (SDC) | payer MEDICARE, SELFPAY ==
[2022-12-19 11:41] VITALS: BMI 37.1
[2022-12-26 11:00] VITALS: BP 155/72; PULSE 61; RESP 20; TEMP 36.2; O2SAT 98; BMI 36.9
[2022-12-26] MEDS: LACTATED RINGERS 1,000 ML 150 ML IV CONT (11:12)
--- NOTE | 2022-12-26 11:28 | PM.HPGS ---
History of Present Illness History of Present Illness Consent: Risks, benefits, and alternatives have been discussed and questions answered. Patient agrees to proceed with procedure. Chief complaint: Neoplasm screening Narrative: Matteo Salcedo is a 72 year old male Presents for screening colonoscopy. Patient's current weight appetite and bowel movements are normal. Patient denies abdominal pain. He has had no bleeding. Family history noncontributory. Patient reports previous colonoscopy performed elsewhere 7 years ago . he was told it was unremarkable. Review of Systems Review of Systems: Review of systems noncontributory. [facility] Past Medical History Medical History (Updated 11/27/22 @ 11:43 by Adelfo Farley MD) CAD (coronary artery disease) CVA (cerebral vascular accident) Erectile dysfunction High blood pressure Hyperlipidemia Obesity IRA (obstructive sleep apnea) Screening for colon cancer TIA (transient ischemic attack) Vision loss Surgical History Surgical History History of appendectomy History of facial surgery History of shoulder surgery Hx of CABG x4 vessel, 2019 Hx of heart surgery S/P TURP Family History Family History (Updated 11/27/22 @ 11:12 by Carmen Valdovinos CMA) Father Heart disease Lung cancer Mother Lung cancer Social History Social History (Updated 11/27/22 @ 11:09 by Carmen Valdovinos CMA) Smoking status: Never smoker Second hand tobacco smoke exposure: No Alcohol intake: current Drinks per week: 12 Alcohol use details: BEERS Substance use: never Substance use type: does not use Lack of Transportation: No Lack of Food: Never True Current Housing: I Have Housing Concerned About Future Housing: No Difficulty Paying Gas/Electric Bills: No Difficulty Paying for Meds: No Currently Unemployed: No Education: Don't Know Difficulty w/ Childcare or Family Care: No Living arrangements: with family Additional living arrangements comments: Occupation/Education: retired Gender identity (if verbalized by the patient): Male Spiritual care concerns: No Agree to blood products: Yes Meds Home Medications and Allergies Home Medications Medication Instructions Recorded Confirmed Type clopidogrel 75 mg tablet 75 mg PO HS 05/06/21 12/19/22 History metoprolol succinate 50 mg 50 mg PO HS 05/06/21 12/19/22 History tablet,extended release 24 hr nitroglycerin 0.4 mg sublingual 0.4 mg sublingual Q2-3M PRN Chest 05/06/21 12/19/22 History tablet Pain rosuvastatin 20 mg tablet 20 mg PO HS 05/06/21 12/19/22 History amlodipine 5 mg tablet 7.5 mg PO HS 11/27/22 12/19/22 History losartan 100 mg tablet 100 mg PO HS 12/19/22 12/19/22 History turmeric 1,000 mg PO BID 12/19/22 12/19/22 History Allergies Allergy/AdvReac Type Severity Reaction Status Date / Time No Known Allergies Allergy Verified 12/26/22 10:59 Vital Signs Vital Signs - 24 hr 12/26/22 11:00 Temperature 97.2 F L Pulse Rate 61 Respiratory Rate 20 Blood Pressure 155/72 H Pulse Oximetry 98 Oxygen Delivery Room Air Exam Narrative: Physical exam reveals patient to be alert. Vital signs stable. HEENT exam is unremarkable. Patient is anicteric. Lungs are clear to auscultation and percussion. Heart is without murmur or extra sounds. Abdomen Is obese. bowel sounds are present soft nontender with no organomegaly. Do digital external rectal exam is normal. Assessment and Plan Assessment and plan (1) Screening for colon cancer: Code(s): Z12.11 - Encounter for screening for malignant neoplasm of colon Status: Acute Assessment and Plan: Patient presents today for screening colonoscopy. Further recommendations may be given after endoscopy.
--- NOTE | 2022-12-26 11:50 | WPDANESEPPF ---
Anes - Initial Pre Proc Eval Procedure: Operation Date: 12/26/22 12:30 Proposed Procedures p Screening Colonoscopy - Hussein Marte MD Date/Time: 12/26/22 11:50 Surgeon: Hussein Marte MD Pre Op Diagnosis: Neoplasm screening Patient Data Age: 72 Gender: M Height: 1.68 m Weight: 103.8 kg Last Vital Signs Temp 97.2 F L 12/26/22 11:00 Pulse 61 12/26/22 11:00 Resp 20 12/26/22 11:00 BP 155/72 H 12/26/22 11:00 Pulse Ox 98 12/26/22 11:00 O2 Del Method Room Air 12/26/22 11:00 Allergies Allergy/AdvReac Type Severity Reaction Status Date / Time No Known Allergies Allergy Verified 12/26/22 10:59 Home Medications Medication Instructions Recorded Confirmed Type clopidogrel 75 mg tablet 75 mg PO HS 05/06/21 12/19/22 History metoprolol succinate 50 mg 50 mg PO HS 05/06/21 12/19/22 History tablet,extended release 24 hr nitroglycerin 0.4 mg sublingual 0.4 mg sublingual Q2-3M PRN Chest 05/06/21 12/19/22 History tablet Pain rosuvastatin 20 mg tablet 20 mg PO HS 05/06/21 12/19/22 History amlodipine 5 mg tablet 7.5 mg PO HS 11/27/22 12/19/22 History losartan 100 mg tablet 100 mg PO HS 12/19/22 12/19/22 History turmeric 1,000 mg PO BID 12/19/22 12/19/22 History Patient hx anesthesia problems: none Family hx anesthesia problems: none Results Review: All pre-operative results and documents have been reviewed as part of the pre-operative evaluation. [facility] Past Medical History Medical History (Updated 11/27/22 @ 11:43 by Adelfo Farley MD) CAD (coronary artery disease) CVA (cerebral vascular accident) Erectile dysfunction High blood pressure Hyperlipidemia Obesity IRA (obstructive sleep apnea) Screening for colon cancer TIA (transient ischemic attack) Vision loss Surgical History Surgical History History of appendectomy History of facial surgery History of shoulder surgery Hx of CABG x4 vessel, 2019 Hx of heart surgery S/P TURP Family History Family History (Updated 11/27/22 @ 11:12 by Carmen Valdovinos CMA) Father Heart disease Lung cancer Mother Lung cancer Social History Social History (Updated 11/27/22 @ 11:09 by Carmen Valdovinos [facility]) Smoking status: Never smoker Second hand tobacco smoke exposure: No Alcohol intake: current Drinks per week: 12 Alcohol use details: BEERS Substance use: never Substance use type: does not use Lack of Transportation: No Lack of Food: Never True Current Housing: I Have Housing Concerned About Future Housing: No Difficulty Paying Gas/Electric Bills: No Difficulty Paying for Meds: No Currently Unemployed: No Education: Don't Know Difficulty w/ Childcare or Family Care: No Living arrangements: with family Additional living arrangements comments: Occupation/Education: retired Gender identity (if verbalized by the patient): Male Spiritual care concerns: No Agree to blood products: Yes Anes - Eval Final PreProcedure Day of Procedure 12/26/22 11:50 Patient weight: obese Heart: regular rate and rhythm Lungs: clear to auscultation Airway: Mallampati scale class III Neurological: alert and oriented Last oral intake: >/= 8 hours ASA classification: III Emergent: no Anesthetic plan: proceed Anesthesia type and monitoring: general GIVS and standard monitoring Results Review: All pre-operative results and documents have been reviewed as part of the pre-operative evaluation. Informed Consent: The patient's anesthetic plan and its attendant risks and benefits were discussed with the patient/family/POA. Questions were solicited and answers provided to the satisfaction of the patient/family/POA.
[2022-12-26 12:11] VITALS: BP 105/56; PULSE 59; RESP 16; O2SAT 97
[2022-12-26 12:21] VITALS: BP 124/67; PULSE 55; RESP 18; O2SAT 100
[2022-12-26 12:31] VITALS: BP 142/79; PULSE 58; RESP 19; O2SAT 99
== END 2022-12-26 12:44 | disposition home or self-care (01) ==
PROVIDERS: PCP Family Medicine; Visit Provider Internal Medicine Gastroenterology
PROC: 0DJD8ZZ Inspection of Lower Intestinal Tract, Via Natural or Artificial Opening Endoscopic (ICD-10-PCS; CPT 45378; principal; 2022-12-26 12:30)
DX: Z12.11 Encounter for screening for malignant neoplasm of colon (principal); K64.8 Other hemorrhoids; K57.30 Diverticulosis of large intestine without perforation or abscess without bleeding; I25.10 Atherosclerotic heart disease of native coronary artery without angina pectoris; I10 Essential (primary) hypertension; E78.5 Hyperlipidemia, unspecified; G47.33 Obstructive sleep apnea (adult) (pediatric); E66.9 Obesity, unspecified; Z68.36 Body mass index [BMI] 36.0-36.9, adult; Z95.1 Presence of aortocoronary bypass graft; Z79.02 Long term (current) use of antithrombotics/antiplatelets; Z86.73 Personal history of transient ischemic attack (TIA), and cerebral infarction without residual deficits
CPT/HCPCS: G0121; J2704; J7120